=== PATIENT | female | born 2000 | race Caucasian/White ===

== ENCOUNTER 2020-06-30 19:31 | Emergency (ER) | payer MEDICAID ==
[~2020-06-30] VITALS: Ht 162.6 cm; Wt 46.4 kg
[2020-06-30 20:36] LABS: BASOPHILS % (AUTO) 1 % (0-1); EOSINOPHILS % (AUTO) 5 % (1-7); LYMPHOCYTES % (AUTO) 19 % (22-44); MEAN CORPUSCULAR HEMOGLOBIN 29.3 pg (27.0-34.8); MEAN CORPUSCULAR HGB CONC 34.4 g/dL (32.4-35.8); MEAN PLATELET VOLUME 8.5 fL (7.4-10.4); MONOCYTES % (AUTO) 9 % (2-9); NEUTROPHILS % (AUTO) 67 % (42-75); PLATELET COUNT 280 x10^3/uL (130-400); RED BLOOD COUNT 4.41 x10^6/uL (3.82-5.3); RED CELL DISTRIBUTION WIDTH 13.8 % (9.6-15.2)
[2020-06-30 20:37] LABS: MD NO
[2020-06-30 20:40] LABS: ANION GAP 6 mmol/L (5-15); CALCIUM 9.1 mg/dL (8.5-10.1); CHLORIDE 112 mmol/L (98-107)
[2020-06-30 20:41] LABS: CREATININE 0.79 mg/dL (0.55-1.02)
[2020-06-30] MEDS ORDERED: PLEASE ENTER ALLERGIES MC SCH (21:30)
[2020-06-30] MEDS ORDERED: POTASSIUM CHLORIDE 20 MEQ TAB.ER.PRT PO ONE (21:30)
[2020-06-30 22:03] VITALS: BP 106/64
== END 2020-06-30 22:05 | disposition home or self-care (01) ==
LOC: ED 21:56
DX: F41.1 Generalized anxiety disorder (principal); E87.6 Hypokalemia; R56.9 Unspecified convulsions
CPT/HCPCS: 36415; 80048; 85025; 99283; Q0177

== ENCOUNTER 2020-07-07 22:30 | Emergency (ER) | payer MEDICAID ==
[~2020-07-07] VITALS: Ht 157.5 cm; Wt 46.5 kg
--- NOTE | 2020-07-07 22:44 | NUR ---
patient resting in bed; intermittent eye contact. in NAD. VS remain stable on RA. patient educated about ativan prior to administration. will continue to monitor.
[2020-07-07] MEDS ORDERED: LORazepam 2 MG/ML, 1ML ONE (22:49)
[2020-07-07] MEDS ORDERED: LORazepam 2 MG/ML, 1ML IVPush ONE (23:00)
--- NOTE | 2020-07-07 23:00 | NUR ---
snacks given to patient. patient opened up to RN about stressors in her life at the moment with her current move. she states this is more than likely the trigger for her panic attack today. will monitor her for next 15-20 mins post ativan admin. then orders to dc
--- NOTE | 2020-07-07 23:32 | NUR ---
IV removed- catheter intact, hemostasis achieved, dressing applied. Pt reports they feel calmer after getting the Ativan. Pt agrees with and understands discharge plan and instructions.
[2020-07-07 23:33] VITALS: BP 113/79
== END 2020-07-07 23:50 | disposition home or self-care (01) ==
LOC: ED 23:00
DX: F41.0 Panic disorder [episodic paroxysmal anxiety] (principal); F17.210 Nicotine dependence, cigarettes, uncomplicated
CPT/HCPCS: 96374; 99283; 99406; J2060